=== PATIENT | female | born 1960 | race Caucasian/White ===

== ENCOUNTER 2017-02-18 11:14 | Inpatient (IN) | payer OTHER ==
--- NOTE | ~2017-02-18 | DS ---
Discharge Summary [place] [id number] [facility] [place]. [address] NAME: YONI AL : 62 STATUS : DIS IN PAT#: [id number] AGE: 56 ADM/REG DATE : 02/18/17 MR#: [id number] REPORT SERV DATE: 03/13/17 DICTATED BY: FROLYAN BEDOYA III DATE: 03/12/17 REPORT STATUS : Draft TRANSCRIBED BY: SERGE DATE: 03/12/17 Data Collection from hospitalization DISCHARGE DIAGNOSES: 1. Acute lymphoblastic leukemia. 2. Hypertension. 3. Depression. CONSULTATIONS: None. PROCEDURES PERFORMED: Lumbar puncture and chemotherapy injection, 02/18/2017. PATHOLOGY: Cerebrospinal fluid cytology (ThinPrep and cytospin)-negative for malignancy-see comment. DISCHARGE MEDICATIONS: Zovirax 400 mg daily, Lipitor 80 mg daily, Wellbutrin XL 300 mg daily, Levaquin 750 mg daily, Prilosec 20 mg daily, Zofran 4 mg every four hours as needed, MiraLAX powder one packet daily as needed, Phenergan 25 mg every eight hours as needed, Accupril 10 mg daily. CONDITION AT DISCHARGE: Stable. DISPOSITION: The patient was discharged home on a regular diet with activities as instructed. She would follow up with me, 02/28/2017. HOSPITAL COURSE: This is a 56-year-old female, who has acute lymphoblastic leukemia. This was diagnosed in September 2016. The patient was going to undergo cycle 3A hyper-CVAD. She was admitted to the hospital at this time for further evaluation and treatment. Upon admission, acyclovir was continued. Her pancytopenia had resolved presently. She underwent a lumbar puncture and chemotherapy injection. The following day, she had no new complaints. Her lungs were clear. Her abdomen was soft, nondistended, and nontender. Arixtra was being given for DVT prophylaxis. A PICC line had been inserted. On the , she had no new complaints. No side effects were noted. Acyclovir was continued as well as Arixtra. Over the next couple of days, she had no complaints. Discharge planning was performed. On 02/22/2017, she did have some constipation. She had no other complaints. She was in no acute distress. Her lungs remained clear. Levaquin was started. Discharge instructions were given. Due to her improved and stable condition, she was discharged home with the above-stated instructions. Information collected by: Cindy Gutierrez I submit the above information as my discharge summary. TG/SERGE Froylan Bedoya III, M.D. Discharge Summary [address] [address] NAME: YONI AL : 62 STATUS : DIS IN PAT#: [id number] AGE: 56 ADM/REG DATE : 02/18/17 MR#: [id number] REPORT SERV DATE: 03/13/17 DICTATED BY: FROYLAN BEDOYA III DATE: 03/12/17 REPORT STATUS : Draft TRANSCRIBED BY: SERGE DATE: 03/12/17 / [id number] CC: Maryjane Rosenthal III, M.D.
[~2017-02-18 11:14] MED LIST: ACCU10 PO; ALEVE220 MG PO; ASAB PO; CENTRUM PO; CHEMO IV; CHEMO THERAPY IV; CHEMOTHERAPY IV; FLUCON1 PO; LEVAQUIN750 MG PO; LIPITOR80 MG PO; MAXIMUM D3 PO; MIRALAX POWDER1 PKT PO; MIRALAXPKT PO; PR25 PO; PRILO PO; VALTREX5 PO; WELLXL300 PO; ZOFRAN ODT4 MG PO; ZOFRANODT8; ZOVIRAX400 MG PO
[2017-02-18 12:19] LABS: BASOPHILS 0.3 %; BASOPHILS ABSOLUTE 0.02 10/3/uL (0.0-0.16); EOSINOPHILS 3.6 %; EOSINOPHILS ABSOLUTE 0.28 10/3/uL (0.0-0.53); HEMATOCRIT 32.3 % (36.0-48.0); HEMOGLOBIN 10.8 g/dL (12.0-16.0); IMMATURE GRANULOCYTES 0.4 %; IMMATURE GRANULOCYTES ABSOLUTE 0.03 10/3/uL (0.0-0.11); LYMPHOCYTES 13.4 %; LYMPHOCYTES ABSOLUTE 1.04 10/3/uL (0.67-4.30); MANUAL DIFF NO %; MEAN CORPUS HGB CONC 33.4 g/dL (32.0-36.0); MEAN CORPUSCULAR HEMOGLOB 32.2 pg (26.0-34.0); MEAN CORPUSCULAR VOLUME 96.4 fL (80-100); MONOCYTES 17.2 %; MONOCYTES ABSOLUTE 1.33 10/3/uL (0.21-1.20); NEUTROPHILS 65.1 %; NEUTROPHILS ABSOLUTE 5.05 10/3/uL (2.02-8.40); PLATELET COUNT 213 10/3/uL (150-400); RBC DISTRIBUTION WIDTH 21.4 % (12.0-16.0); RED CELL COUNT 3.35 10/6/uL (4.0-5.6); WHITE BLOOD CELLS 7.8 10/3/uL (4.5-10.5)
[2017-02-18 12:40] LABS: A/G RATIO 0.9 (0.7-1.9); ALBUMIN 3.4 G/DL (3.5-5.0); ALKALINE PHOSPHATASE 143 U/L (45-117); BUN (BLOOD UREA NITROGEN) 5 MG/DL (6-23); CALCIUM, SERUM 9.1 MG/DL (8.5-10.4); CHLORIDE, SERUM 111 MMOL/L (96-112); CO2 (CARBON DIOXIDE) 27 MMOL/L (24-34); CREATININE 0.65 MG/DL (0.55-1.02); GFR AFRICAN AMERICAN 116 ML/MIN (>=60); GFR NON AFRICAN AMERICAN 100 ML/MIN (>=60); GLOBULIN 3.6 G/DL (2.5-4.1); GLUCOSE, SERUM 112 MG/DL (60-99); POTASSIUM, SERUM 3.1 MMOL/L (3.5-5.3); SGOT(AST) 20 U/L (5-40); SGPT(ALT) 30 U/L (5-65); SODIUM, SERUM 148 MMOL/L (135-148); TOTAL BILIRUBIN 0.6 MG/DL (0-1.2)
[2017-02-19 03:54] LABS: BASOPHILS 0 %; EOSINOPHILS 0 %; HEMATOCRIT 33.1 % (36.0-48.0); HEMOGLOBIN 10.9 g/dL (12.0-16.0); IMMATURE GRANULOCYTES 0.3 %; IMMATURE GRANULOCYTES ABSOLUTE 0.02 10/3/uL (0.0-0.11); LYMPHOCYTES 7.8 %; MEAN CORPUS HGB CONC 32.9 g/dL (32.0-36.0); MEAN CORPUSCULAR HEMOGLOB 32.3 pg (26.0-34.0); MEAN CORPUSCULAR VOLUME 98.2 fL (80-100); MEAN PLATELET VOLUME 9.9 fL (9.2-13.0); MONOCYTES 0.8 %; MONOCYTES ABSOLUTE 0.05 10/3/uL (0.21-1.20); NEUTROPHILS 91.1 %; NEUTROPHILS ABSOLUTE 5.82 10/3/uL (2.02-8.40); PLATELET COUNT 209 10/3/uL (150-400); RBC DISTRIBUTION WIDTH 20.6 % (12.0-16.0); RED CELL COUNT 3.37 10/6/uL (4.0-5.6); WHITE BLOOD CELLS 6.4 10/3/uL (4.5-10.5)
[2017-02-19 04:02] LABS: MANUAL DIFF NO %
[2017-02-19 04:06] LABS: BUN (BLOOD UREA NITROGEN) 8 MG/DL (6-23); CALCIUM, SERUM 8.8 MG/DL (8.5-10.4); CHLORIDE, SERUM 108 MMOL/L (96-112); CO2 (CARBON DIOXIDE) 26 MMOL/L (24-34); CREATININE 0.78 MG/DL (0.55-1.02); GFR AFRICAN AMERICAN 99 ML/MIN (>=60); GFR NON AFRICAN AMERICAN 86 ML/MIN (>=60); POTASSIUM, SERUM 3.2 MMOL/L (3.5-5.3); SODIUM, SERUM 147 MMOL/L (135-148)
[2017-02-19 04:07] LABS: GLUCOSE, SERUM 295 MG/DL (60-99)
[2017-02-20 04:02] LABS: BASOPHILS 0.1 %; BASOPHILS ABSOLUTE 0.01 10/3/uL (0.0-0.16); EOSINOPHILS 0 %; HEMATOCRIT 29.9 % (36.0-48.0); HEMOGLOBIN 9.9 g/dL (12.0-16.0); IMMATURE GRANULOCYTES 0.2 %; IMMATURE GRANULOCYTES ABSOLUTE 0.03 10/3/uL (0.0-0.11); LYMPHOCYTES 2.3 %; LYMPHOCYTES ABSOLUTE 0.32 10/3/uL (0.67-4.30); MEAN CORPUS HGB CONC 33.1 g/dL (32.0-36.0); MEAN CORPUSCULAR HEMOGLOB 32.9 pg (26.0-34.0); MEAN CORPUSCULAR VOLUME 99.3 fL (80-100); MEAN PLATELET VOLUME 9.8 fL (9.2-13.0); MONOCYTES ABSOLUTE 0.96 10/3/uL (0.21-1.20); NEUTROPHILS 90.4 %; NEUTROPHILS ABSOLUTE 12.41 10/3/uL (2.02-8.40); PLATELET COUNT 179 10/3/uL (150-400); RBC DISTRIBUTION WIDTH 21.8 % (12.0-16.0); RED CELL COUNT 3.01 10/6/uL (4.0-5.6)
[2017-02-20 04:13] LABS: MANUAL DIFF NO %; WHITE BLOOD CELLS 13.7 10/3/uL (4.5-10.5)
[2017-02-20 04:17] LABS: BUN (BLOOD UREA NITROGEN) 10 MG/DL (6-23); CALCIUM, SERUM 8.7 MG/DL (8.5-10.4); CHLORIDE, SERUM 113 MMOL/L (96-112); CO2 (CARBON DIOXIDE) 24 MMOL/L (24-34); CREATININE 0.78 MG/DL (0.55-1.02); GFR AFRICAN AMERICAN 99 ML/MIN (>=60); GFR NON AFRICAN AMERICAN 86 ML/MIN (>=60); SODIUM, SERUM 146 MMOL/L (135-148)
[2017-02-20 04:22] LABS: GLUCOSE, SERUM 179 MG/DL (60-99)
[2017-02-21 06:32] LABS: BASOPHILS 0 %; EOSINOPHILS 0 %; HEMATOCRIT 28.9 % (36.0-48.0); HEMOGLOBIN 9.5 g/dL (12.0-16.0); IMMATURE GRANULOCYTES 0.3 %; IMMATURE GRANULOCYTES ABSOLUTE 0.03 10/3/uL (0.0-0.11); LYMPHOCYTES 2.6 %; LYMPHOCYTES ABSOLUTE 0.24 10/3/uL (0.67-4.30); MEAN CORPUS HGB CONC 32.9 g/dL (32.0-36.0); MEAN CORPUSCULAR HEMOGLOB 32.6 pg (26.0-34.0); MEAN CORPUSCULAR VOLUME 99.3 fL (80-100); MONOCYTES 6.5 %; MONOCYTES ABSOLUTE 0.61 10/3/uL (0.21-1.20); NEUTROPHILS 90.6 %; NEUTROPHILS ABSOLUTE 8.52 10/3/uL (2.02-8.40); PLATELET COUNT 167 10/3/uL (150-400); RBC DISTRIBUTION WIDTH 21.5 % (12.0-16.0); RED CELL COUNT 2.91 10/6/uL (4.0-5.6); WHITE BLOOD CELLS 9.4 10/3/uL (4.5-10.5)
[2017-02-21 06:41] LABS: BUN (BLOOD UREA NITROGEN) 13 MG/DL (6-23); CHLORIDE, SERUM 111 MMOL/L (96-112); CO2 (CARBON DIOXIDE) 23 MMOL/L (24-34); GFR AFRICAN AMERICAN 119 ML/MIN (>=60); GFR NON AFRICAN AMERICAN 103 ML/MIN (>=60); GLUCOSE, SERUM 150 MG/DL (60-99); POTASSIUM, SERUM 3.4 MMOL/L (3.5-5.3); SODIUM, SERUM 145 MMOL/L (135-148)
[2017-02-21 06:45] LABS: MANUAL DIFF NO %
[2017-02-22 07:23] LABS: BASOPHILS 0 %; EOSINOPHILS 0 %; HEMOGLOBIN 9.5 g/dL (12.0-16.0); IMMATURE GRANULOCYTES 0.2 %; IMMATURE GRANULOCYTES ABSOLUTE 0.01 10/3/uL (0.0-0.11); LYMPHOCYTES 6.8 %; LYMPHOCYTES ABSOLUTE 0.31 10/3/uL (0.67-4.30); MEAN CORPUS HGB CONC 32.8 g/dL (32.0-36.0); MEAN CORPUSCULAR HEMOGLOB 32.5 pg (26.0-34.0); MEAN CORPUSCULAR VOLUME 99.3 fL (80-100); MONOCYTES 4.8 %; MONOCYTES ABSOLUTE 0.22 10/3/uL (0.21-1.20); NEUTROPHILS 88.2 %; NEUTROPHILS ABSOLUTE 4.05 10/3/uL (2.02-8.40); PLATELET COUNT 134 10/3/uL (150-400); RBC DISTRIBUTION WIDTH 19.8 % (12.0-16.0); RED CELL COUNT 2.92 10/6/uL (4.0-5.6)
[2017-02-22 07:24] LABS: MANUAL DIFF NO %; WHITE BLOOD CELLS 4.6 10/3/uL (4.5-10.5)
[2017-02-22 07:35] LABS: BUN (BLOOD UREA NITROGEN) 13 MG/DL (6-23); CALCIUM, SERUM 8.6 MG/DL (8.5-10.4); CHLORIDE, SERUM 110 MMOL/L (96-112); CO2 (CARBON DIOXIDE) 25 MMOL/L (24-34); CREATININE 0.51 MG/DL (0.55-1.02); GFR AFRICAN AMERICAN 125 ML/MIN (>=60); GFR NON AFRICAN AMERICAN 108 ML/MIN (>=60); POTASSIUM, SERUM 3.3 MMOL/L (3.5-5.3); SODIUM, SERUM 146 MMOL/L (135-148)
[2017-02-22 07:36] LABS: GLUCOSE, SERUM 100 MG/DL (60-99)
[2017-02-22] MEDS ORDERED: LEVAQUIN750 MG PO (09:13)
== END 2017-02-22 16:58 | disposition home or self-care (01) | DRG 839 ==
LOC: 4EA 11:14
PROVIDERS: Internal Medicine
PROC: 02HV33Z Insertion of Infusion Device into Superior Vena Cava, Percutaneous Approach (ICD-10-PCS; principal; 2017-02-17)
PROC: 4A02X4A Measurement of Cardiac Electrical Activity, Guidance, External Approach (ICD-10-PCS; 2017-02-17)
PROC: 3E03305 Introduction of Other Antineoplastic into Peripheral Vein, Percutaneous Approach (ICD-10-PCS; 2017-02-18)
DX: Z51.11 Encounter for antineoplastic chemotherapy (principal); C91.00 Acute lymphoblastic leukemia not having achieved remission; I10 Essential (primary) hypertension; F41.9 Anxiety disorder, unspecified
CPT/HCPCS: 36569; 62270; 77003; 80048; 80053; 85025; 88112; A9270-GY; C1751; J1652; J2405; J9000; J9070; J9209; J9260; J9370

== ENCOUNTER 2017-03-05 15:59 | Inpatient (IN) | payer OTHER ==
--- NOTE | ~2017-03-05 | DS ---
Discharge Summary [facility] [address] [place]. [address] NAME: YONI AL : 62 STATUS : DIS IN PAT#: [id number] AGE: 56 ADM/REG DATE : 03/05/17 MR#: [id number] REPORT SERV DATE: 03/08/17 DICTATED BY: MARYSE DARNELL II DATE: 03/07/17 REPORT STATUS : Draft TRANSCRIBED BY: SERGE DATE: 03/07/17 ADMISSION DATE: 03/05/2017 DISCHARGE DATE: 03/07/2017 DISCHARGE DIAGNOSES: 1. Neutropenic fever. 2. ALL, on chemotherapy. 3. Pancytopenia secondary to chemotherapy. 4. Hypertension. CONSULTS: Carlos Marie M.D., [facility]. BRIEF HISTORY OF PRESENT ILLNESS: The patient is a 56-year-old female with the above history, who presented to [facility] due to fever in the setting of neutropenia. For detailed history and physical examination, please see my note from 03/05/2017. HOSPITAL COURSE: The patient was subsequently admitted and started on cefepime after blood cultures were drawn. Workup including UA, chest x-ray, and blood cultures have all been unremarkable, and she has not had any further fever. Currently, her white count is on the rise and ANC today is 1600. At this point, we will discontinue antibiotics and have the patient follow up in the Oncology Office in the next week or two per Dr. Marie. DISCHARGE MEDICATIONS: 1. Acyclovir 400 mg p.o. daily. 2. Atorvastatin 80 mg p.o. daily. 3. Wellbutrin 300 mg p.o. daily. 4. Prilosec 20 mg p.o. daily. 5. Accupril 10 mg p.o. daily. 6. Phenergan 25 mg p.o. q.8 hours p.r.n. 7. Zofran 4 mg p.o. q.4 hours p.r.n. 8. MiraLAX one pack p.o. daily p.r.n. 9. Tylenol 650 mg p.o. p.r.n. DISCHARGE INSTRUCTIONS: The patient will follow up with Dr. Marie next week. HERVE/SERGE Maryse Darnell II, MD / [id number] CC: Maryse Darnell II, MD Discharge Summary [address] [address] NAME: YONI AL : 62 STATUS : DIS IN PAT#: [id number] AGE: 56 ADM/REG DATE : 03/05/17 MR#: [id number] REPORT SERV DATE: 03/08/17 DICTATED BY: MARYSE DARNELL II DATE: 03/07/17 REPORT STATUS : Draft TRANSCRIBED BY: MODL DATE: 03/07/17 Arik Corado M.D.
--- NOTE | ~2017-03-05 | HP ---
History And Physical [place] [address] [facility] [place]. [address] NAME: YONI AL : 62 STATUS : ADM IN [facility]#: [id number] AGE: 56 ADM/REG DATE : 03/05/17 MR#: [id number] REPORT SERV DATE: 03/05/17 DICTATED BY: MARYSE SWANSON II DATE: 03/05/17 REPORT STATUS : Draft TRANSCRIBED BY: SERGE DATE: 03/05/17 DATE OF ADMISSION: 03/05/2017 CHIEF COMPLAINT: Neutropenic fever. HISTORY OF PRESENT ILLNESS: The patient is a 56-year-old female with a history of ALL, who recently received a dose of vincristine this past . She is status post cycle 3 of hyper-CVAD and presented to [facility] today and found to have a fever of 100.8 and neutropenic. The patient denies any specific complaints of shortness of breath, cough, or sputum production. Denies any nausea, vomiting, or diarrhea. Denies any abdominal pain or dysuria. REVIEW OF SYSTEMS: A 10-point review of systems is otherwise negative except for HPI. PAST MEDICAL HISTORY: 1. ALL, status post cycle 3 of hyper-CVAD. 2. Hypertension. 3. Hyperlipidemia. PAST SURGICAL HISTORY: Eye surgery and breast reduction. SOCIAL HISTORY: Denies any alcohol, tobacco, or drug use. She is . FAMILY HISTORY: Father was a smoker, of lung cancer. HOME MEDICATIONS: Zovirax, Lipitor, Wellbutrin, Prilosec, Accupril, Zofran, and Phenergan. PHYSICAL EXAMINATION: VITAL SIGNS: Blood pressure 115/71, temperature 98.9, heart rate 118, respiration rate 18, and O2 saturation 95% on room air. GENERAL: The patient is alert and oriented x3. In no acute distress. NECK: Supple. Nontender. No lymphadenopathy or thyromegaly. HEENT: Moist mucous membranes. Pupils are equal, round, and reactive to light. Conjunctivae clear. RESPIRATORY: Lungs clear to auscultation bilaterally. No wheezes, rhonchi, or rales. Nonlabored breathing. CARDIOVASCULAR: Tachycardic but regular rhythm. No murmurs, rubs, or gallops. ABDOMEN: Soft, nontender, nondistended. Normoactive bowel sounds. EXTREMITIES: No cyanosis, clubbing, or edema. SKIN: No lesions, rashes, or wounds. NEUROLOGIC: No focal deficits. LABORATORY DATA: Pending. ASSESSMENT AND PLAN: The patient is a 56-year-old female with: History And Physical [address] [address] NAME: YONI AL : 62 STATUS : ADM IN [facility]#: [id number] AGE: 56 ADM/REG DATE : 03/05/17 MR#: [id number] REPORT SERV DATE: 03/05/17 DICTATED BY: MARYSE SWANSON II DATE: 03/05/17 REPORT STATUS : Draft TRANSCRIBED BY: SERGE DATE: 03/05/17 1. Neutropenic fever of uncertain etiology. Has no specific complaints, so we will start with blood cultures, chest x-ray, urinalysis, and start cefepime. 2. Acute lymphocytic leukemia, status post vincristine, now neutropenic. We will follow blood counts and transfuse p.r.n. 3. Hypertension. Home medications. 4. Deep venous thrombosis prophylaxis with Lovenox as long as platelets greater than 50,000. 5. The patient is a full code. HERVE/SERGE Maryse Swanson II, MD / [id number] CC: Maryse Swanson II, MD
[2017-03-05] MEDS ORDERED: 8 HOUR650 MG PO (17:38)
[2017-03-05 18:10] LABS: HEMATOCRIT 29.1 % (36.0-48.0); HEMOGLOBIN 10.2 g/dL (12.0-16.0); MEAN CORPUSCULAR HEMOGLOB 32.4 pg (26.0-34.0); MEAN PLATELET VOLUME 11.9 fL (9.2-13.0); RED CELL COUNT 3.15 10/6/uL (4.0-5.6)
[2017-03-05 18:11] LABS: MEAN CORPUS HGB CONC 35.1 g/dL (32.0-36.0); MEAN CORPUSCULAR VOLUME 92.4 fL (80-100); PLATELET COUNT 39 10/3/uL (150-400); WHITE BLOOD CELLS 1.7 10/3/uL (4.5-10.5)
[2017-03-05 18:12] LABS: MANUAL DIFF YES %
[2017-03-05 18:32] LABS: A/G RATIO 0.9 (0.7-1.9); ALKALINE PHOSPHATASE 98 U/L (45-117); BUN (BLOOD UREA NITROGEN) 11 MG/DL (6-23); CALCIUM, SERUM 8.9 MG/DL (8.5-10.4); CHLORIDE, SERUM 103 MMOL/L (96-112); CO2 (CARBON DIOXIDE) 26 MMOL/L (24-34); CREATININE 0.79 MG/DL (0.55-1.02); GFR AFRICAN AMERICAN 98 ML/MIN (>=60); GFR NON AFRICAN AMERICAN 84 ML/MIN (>=60); GLOBULIN 3.2 G/DL (2.5-4.1); GLUCOSE, SERUM 131 MG/DL (60-99); POTASSIUM, SERUM 2.9 MMOL/L (3.5-5.3); SGOT(AST) 5 U/L (5-40); SGPT(ALT) 25 U/L (5-65); SODIUM, SERUM 140 MMOL/L (135-148); TOTAL BILIRUBIN 0.6 MG/DL (0-1.2); TOTAL PROTEIN 6.2 G/DL (6.0-8.5)
[2017-03-05 18:39] LABS: BAND NEUTROPHILS 4 %; EOSINOPHILS 1 %; EOSINOPHILS ABSOLUTE (CALC) 0.02 10/3/uL (0.0-0.53); LYMPHOCYTES 25 %; LYMPHOCYTES ABSOLUTE (CALC) 0.43 10/3/uL (0.67-4.30); MONOCYTES 56 %; MONOCYTES ABSOLUTE (CALC) 0.95 10/3/uL (0.21-1.20); NEUTROPHILS ABSOLUTE (CALC) 0.31 10/3/uL (2.02-8.40); SEGMENTED NEUTROPHIL (0) 14 %; TOTAL NUCLEATED CELLS 100
[2017-03-05 18:40] LABS: ANISOCYTOSIS 1+ (5-10/OIF) (0-5/OIF); TEARDROP SHAPED RBCS OCC (0-2/OIF)
[2017-03-05 19:23] LABS: ASCORBIC ACID (UR NOT ORDER) NEG (NEG); BILIRUBIN, URINE NEGATIVE (NEG); KETONE, URINE NEGATIVE (NEG); LEUKOCYTE ESTERASE(NOT OR NEG (NEG); WBC (NOT ORDERED) (RFLEX) 1 (0-5)
[2017-03-05 19:39] LABS: PROCALCITONIN 0.15 ng/mL (<0.5)
[2017-03-06 04:22] LABS: HEMATOCRIT 27.9 % (36.0-48.0); HEMOGLOBIN 9.5 g/dL (12.0-16.0); MEAN CORPUS HGB CONC 34.1 g/dL (32.0-36.0); MEAN CORPUSCULAR HEMOGLOB 32.1 pg (26.0-34.0); MEAN CORPUSCULAR VOLUME 94.3 fL (80-100); MEAN PLATELET VOLUME 12.1 fL (9.2-13.0); PLATELET COUNT 40 10/3/uL (150-400); RBC DISTRIBUTION WIDTH 17.2 % (12.0-16.0); RED CELL COUNT 2.96 10/6/uL (4.0-5.6); WHITE BLOOD CELLS 1.6 10/3/uL (4.5-10.5)
[2017-03-06 04:23] LABS: MANUAL DIFF YES %
[2017-03-06 04:36] LABS: BUN (BLOOD UREA NITROGEN) 9 MG/DL (6-23); CALCIUM, SERUM 8.9 MG/DL (8.5-10.4); CHLORIDE, SERUM 107 MMOL/L (96-112); CO2 (CARBON DIOXIDE) 28 MMOL/L (24-34); CREATININE 0.74 MG/DL (0.55-1.02); GFR AFRICAN AMERICAN 106 ML/MIN (>=60); GFR NON AFRICAN AMERICAN 91 ML/MIN (>=60); GLUCOSE, SERUM 143 MG/DL (60-99); POTASSIUM, SERUM 3.3 MMOL/L (3.5-5.3); SODIUM, SERUM 144 MMOL/L (135-148)
[2017-03-06 04:46] LABS: BAND NEUTROPHILS 14 %; EOSINOPHILS 2 %; EOSINOPHILS ABSOLUTE (CALC) 0.03 10/3/uL (0.0-0.53); IMMATURE GRANS ABSOLUTE (CALC) 0.03 10/3/uL (0.0-0.11); LYMPHOCYTES 20 %; LYMPHOCYTES ABSOLUTE (CALC) 0.32 10/3/uL (0.67-4.30); METAMYELOCYTES 2 %; MONOCYTES 42 %; MONOCYTES ABSOLUTE (CALC) 0.67 10/3/uL (0.21-1.20); NEUTROPHILS ABSOLUTE (CALC) 0.54 10/3/uL (2.02-8.40); SEGMENTED NEUTROPHIL (0) 20 %; TOTAL NUCLEATED CELLS 100
[2017-03-06 04:47] LABS: ANISOCYTOSIS 1+ (5-10/OIF) (0-5/OIF)
[2017-03-07 05:34] LABS: HEMATOCRIT 29.3 % (36.0-48.0); HEMOGLOBIN 10.1 g/dL (12.0-16.0); MEAN CORPUS HGB CONC 34.5 g/dL (32.0-36.0); MEAN CORPUSCULAR HEMOGLOB 32.3 pg (26.0-34.0); MEAN CORPUSCULAR VOLUME 93.6 fL (80-100); MEAN PLATELET VOLUME 11.1 fL (9.2-13.0); RED CELL COUNT 3.13 10/6/uL (4.0-5.6)
[2017-03-07 05:36] LABS: MANUAL DIFF YES %; PLATELET COUNT 56 10/3/uL (150-400); WHITE BLOOD CELLS 2.6 10/3/uL (4.5-10.5)
[2017-03-07 06:28] LABS: BAND NEUTROPHILS 13 %; IMMATURE GRANS ABSOLUTE (CALC) 0.13 10/3/uL (0.0-0.11); LYMPHOCYTES 10 %; LYMPHOCYTES ABSOLUTE (CALC) 0.26 10/3/uL (0.67-4.30); METAMYELOCYTES 3 %; MONOCYTES 24 %; MONOCYTES ABSOLUTE (CALC) 0.62 10/3/uL (0.21-1.20); MYELOCYTES 2 %; NEUTROPHILS ABSOLUTE (CALC) 1.59 10/3/uL (2.02-8.40); SEGMENTED NEUTROPHIL (0) 48 %; TOTAL NUCLEATED CELLS 100
[2017-03-07 06:29] LABS: PLATELET ESTIMATE DEC (ADEQUATE); TEARDROP SHAPED RBCS OCC (0-2/OIF)
[2017-03-07 06:30] LABS: ANISOCYTOSIS 1+ (5-10/OIF) (0-5/OIF)
== END 2017-03-07 11:52 | disposition home or self-care (01) | DRG 809 ==
LOC: 4EA 15:59
PROVIDERS: Internal Medicine
DX: D70.9 Neutropenia, unspecified (principal); C91.00 Acute lymphoblastic leukemia not having achieved remission; R50.81 Fever presenting with conditions classified elsewhere; I10 Essential (primary) hypertension; D61.810 Antineoplastic chemotherapy induced pancytopenia
CPT/HCPCS: 71010; 80048; 80053; 81001; 84145; 85025; 87040; A9270-GY; J0692

== ENCOUNTER 2017-03-25 11:44 | Inpatient (IN) | payer OTHER ==
--- NOTE | ~2017-03-25 | HP ---
History And Physical [place] [address] [facility] [place]. [address] NAME: YONI AL : 62 STATUS : ADM IN [facility]#: [id number] AGE: 56 ADM/REG DATE : 03/25/17 MR#: [id number] REPORT SERV DATE: 03/25/17 DICTATED BY: MARYSE DARNELL II DATE: 03/25/17 REPORT STATUS : Draft TRANSCRIBED BY: MODLanette DATE: 03/25/17 DATE OF ADMISSION: 03/25/2017 PRIMARY ONCOLOGIST: Dr. Marie. CHIEF COMPLAINT: Neutropenic fever and recent dental work. HISTORY OF PRESENT ILLNESS: The patient is a 56-year-old female with a history of ALL status post hyper-CVAD who presented clinic today after having a fever of a little over 101 at home. She was found to be neutropenic in the clinic and subsequently admitted for neutropenic fever. Currently the patient denies any shortness of breath, chest pain, cough, sore throat, nausea, vomiting, diarrhea, or abdominal pain. Her only real symptom is pain and swelling in her left upper molar after recent tooth extraction. She states her face feels swollen and she can feel a tender lymph node in her left neck. Otherwise no complaints. REVIEW OF SYSTEMS: A 10-point review of systems is otherwise negative except for HPI. PAST MEDICAL HISTORY: 1. ALL, status post hyper-CVAD, being considered for stem cell transplant soon. 2. Hypertension. 3. Hyperlipidemia. PAST SURGICAL HISTORY: Eye surgery and breast reduction. SOCIAL HISTORY: Denies any alcohol, tobacco, or drug use. She is . FAMILY HISTORY: Father was a smoker, of lung cancer. HOME MEDICATIONS: Zovirax, Lipitor, Wellbutrin, Prilosec, Accupril, Zofran, and Phenergan. PHYSICAL EXAMINATION: VITAL SIGNS: Temperature 99.1, pulse 107, respirations 16, and O2 saturation 100% on room air. GENERAL: The patient is alert and oriented x3, in no acute distress. NECK: Supple with mild tenderness of a left anterior cervical chain lymph node as well as pain and swelling of the left maxilla over the molar. There is a visible tooth extraction site molar without any obvious erythema or abscess. HEENT: Moist mucous membranes. Pupils are equal, round, and reactive to light. Conjunctivae clear. RESPIRATORY: Lungs clear to auscultation bilaterally. No wheezes, rhonchi, or rales. CARDIOVASCULAR: Regular rate and rhythm. No murmurs, rubs, or gallops. ABDOMEN: Soft, nontender, nondistended. Normoactive bowel sounds. EXTREMITIES: No cyanosis, clubbing, or edema. History And Physical [address] [address] NAME: YONI AL : 62 STATUS : ADM IN [facility]#: [id number] AGE: 56 ADM/REG DATE : 03/25/17 MR#: [id number] REPORT SERV DATE: 03/25/17 DICTATED BY: MARYSE DARNELL II DATE: 03/25/17 REPORT STATUS : Draft TRANSCRIBED BY: MODLanette DATE: 03/25/17 SKIN: No lesions, rashes, or wounds. NEUROLOGIC: No focal deficits. LABORATORY DATA: Pending. ASSESSMENT AND PLAN: The patient is a 56-year-old female with 1. Neutropenic fever likely secondary to recent dental work with possible tooth infection or abscessed tooth. We will go ahead and start the patient on Zosyn and get a CT of her maxilla to evaluate for possible abscess. Otherwise we will check blood cultures, chest x-ray, and UA as per standard neutropenic fever workup. 2. Acute lymphocytic leukemia, on chemotherapy. We will schedule to receive chemotherapy today; however, holding off due to neutropenic fever. 3. Hypertension. 4. The patient is a full code. HERVE/SERGE Maryse Darnell II, MD / [id number] CC: Maryjane Rosenthal III, M.D.
--- NOTE | ~2017-03-25 | DS ---
Discharge Summary [facility] [address] [place]. [address] NAME: YONI AL : 62 STATUS : DIS IN PAT#: [id number] AGE: 56 ADM/REG DATE : 03/25/17 MR#: [id number] REPORT SERV DATE: 04/09/17 DICTATED BY: FROYLAN BEDOYA III DATE: 04/09/17 REPORT STATUS : Draft TRANSCRIBED BY: SERGE DATE: 04/09/17 Data Collection from hospitalization DISCHARGE DIAGNOSES: 1. Febrile neutropenia. 2. Acute lymphocytic leukemia - remission. 3. Hypertension. 4. Hyperlipidemia. CONSULTATIONS: None. PROCEDURES PERFORMED: 1. CT scan of the face with contrast on 03/25/2017. 2. Bone marrow biopsy on 03/27/2017. PATHOLOGY: Bone marrow, posterior iliac crest aspiration clot and biopsy - variably cellular bone marrow (10%-70%) with marked erythroid hyperplasia and left shifted granulopoiesis. No B lymphoblastic leukemia/lymphoma identified by morphology. See comment. MEDICATIONS: Zovirax 400 mg daily, Lipitor 80 mg daily, Wellbutrin XL 300 mg daily, Levaquin 750 mg daily as instructed, Prilosec 20 mg daily, and Accupril 10 mg daily. CONDITION AT DISCHARGE: Stable. DISPOSITION: The patient was discharged home on a regular diet with activities as instructed. She would follow up with me on 04/02/2017. HOSPITAL COURSE: This is a 56-year-old female who has a history of acute lymphocytic leukemia, status post hyper-CVAD who presented to the clinic on the day of this admission after having a fever of a little over 101 at home. She was found to be neutropenic in the clinic and subsequently it was felt that she would need to be admitted for neutropenic fever. The patient denied shortness of breath, chest pain, cough, sore throat, nausea, vomiting, diarrhea, or abdominal pain. Her only real symptom was pain and swelling in the left upper molar after a recent tooth extraction. She said that her face felt swollen and she could feel a tender lymph node in her left neck. She was admitted to the hospital at this time for further evaluation and treatment. Upon admission, the patient was started on Zosyn. A CT scan of the maxilla was requested to evaluate for possible abscess. Blood cultures, chest x-ray, and urinalysis were obtained. The patient was going to be scheduled to receive chemotherapy; however, we were going to hold off due to the neutropenic fever. A CT scan of the face with contrast was performed. The following day, she had mild fatigue. She had no other problems. She had no shortness of breath or diarrhea. She had no edema. On 03/27/2017, the patient had no complaints. She remained afebrile. She had no edema. Her lungs were clear. A bone marrow biopsy was performed. Zosyn was continued. On 03/28/2017, she had no new complaints. She tolerated the bone marrow biopsy very well. Her lungs were clear. She had a normal respiratory effort. She had no edema. The next Discharge Summary [address] [address] NAME: YONI AL : 62 STATUS : DIS IN PAT#: [id number] AGE: 56 ADM/REG DATE : 03/25/17 MR#: [id number] REPORT SERV DATE: 04/09/17 DICTATED BY: FROYLAN BEDOYA III DATE: 04/09/17 REPORT STATUS : Draft TRANSCRIBED BY: MODL DATE: 04/09/17 day, she had no new complaints. Her abdomen was soft and nontender. Her lungs were clear. Blood pressure was well controlled. Bone marrow biopsy results were reviewed. On 03/30/2017, the patient was feeling better. She had no pain. She had no fever. Her lungs remained clear. Blood pressure was controlled on Accupril. She was going to be discharged on Levaquin. ANC was 700. Discharge instructions were given. Due to her improved and stable condition, she was discharged home with the above-stated instructions. Information collected by: Cindy Gutierrez I submit the above information as my discharge summary. TG/MODL Froylan Bedoya III, M.D. / [id number] CC: Maryjane Rosenthal III, M.D.
[~2017-03-25 11:44] MED LIST changes: +8 HOUR650 MG PO
[2017-03-25] MEDS ORDERED: LEVAQUIN750 MG PO (15:08)
[2017-03-25 16:46] LABS: HEMATOCRIT 25.2 % (36.0-48.0); HEMOGLOBIN 8.5 g/dL (12.0-16.0); MEAN CORPUS HGB CONC 33.7 g/dL (32.0-36.0); MEAN CORPUSCULAR HEMOGLOB 33.2 pg (26.0-34.0); MEAN CORPUSCULAR VOLUME 98.4 fL (80-100); MEAN PLATELET VOLUME 10.1 fL (9.2-13.0); PLATELET COUNT 183 10/3/uL (150-400); RBC DISTRIBUTION WIDTH 18.4 % (12.0-16.0); RED CELL COUNT 2.56 10/6/uL (4.0-5.6); WHITE BLOOD CELLS 1.6 10/3/uL (4.5-10.5)
[2017-03-25 16:48] LABS: MANUAL DIFF YES %
[2017-03-25 17:05] LABS: A/G RATIO 0.9 (0.7-1.9); ALBUMIN 3.3 G/DL (3.5-5.0); ALKALINE PHOSPHATASE 110 U/L (45-117); BUN (BLOOD UREA NITROGEN) 7 MG/DL (6-23); CALCIUM, SERUM 9.7 MG/DL (8.5-10.4); CHLORIDE, SERUM 105 MMOL/L (96-112); CO2 (CARBON DIOXIDE) 30 MMOL/L (24-34); GFR AFRICAN AMERICAN 113 ML/MIN (>=60); GFR NON AFRICAN AMERICAN 98 ML/MIN (>=60); GLOBULIN 3.5 G/DL (2.5-4.1); GLUCOSE, SERUM 118 MG/DL (60-99); POTASSIUM, SERUM 3.4 MMOL/L (3.5-5.3); SGOT(AST) 9 U/L (5-40); SGPT(ALT) 17 U/L (5-65); SODIUM, SERUM 140 MMOL/L (135-148); TOTAL BILIRUBIN 0.9 MG/DL (0-1.2); TOTAL PROTEIN 6.8 G/DL (6.0-8.5)
[2017-03-25 17:09] LABS: BAND NEUTROPHILS 4 %; LYMPHOCYTES 52 %; LYMPHOCYTES ABSOLUTE (CALC) 0.83 10/3/uL (0.67-4.30); MONOCYTES 40 %; MONOCYTES ABSOLUTE (CALC) 0.64 10/3/uL (0.21-1.20); NEUTROPHILS ABSOLUTE (CALC) 0.13 10/3/uL (2.02-8.40); SEGMENTED NEUTROPHIL (0) 4 %; TOTAL NUCLEATED CELLS 100
[2017-03-25 17:10] LABS: ANISOCYTOSIS 1+ (5-10/OIF) (0-5/OIF); MACROCYTES 1+ (5-10/OIF) (0-5/OIF); MICROCYTES 1+ (5-10/OIF) (0-5/OIF); TEARDROP SHAPED RBCS OCC (0-2/OIF)
[2017-03-25 17:11] LABS: OVALOCYTES 1+ (3-10/OIF) (0-2/OIF)
[2017-03-25 18:58] LABS: ASCORBIC ACID (UR NOT ORDER) NEG (NEG); BILIRUBIN, URINE NEGATIVE (NEG); KETONE, URINE NEGATIVE (NEG); LEUKOCYTE ESTERASE(NOT OR NEG (NEG); WBC (NOT ORDERED) (RFLEX) 1 (0-5)
[2017-03-25 21:09] LABS: PROCALCITONIN 0.06 ng/mL (<0.5)
[2017-03-26 04:11] LABS: BUN (BLOOD UREA NITROGEN) 6 MG/DL (6-23); CALCIUM, SERUM 9.3 MG/DL (8.5-10.4); CHLORIDE, SERUM 107 MMOL/L (96-112); CO2 (CARBON DIOXIDE) 29 MMOL/L (24-34); CREATININE 0.78 MG/DL (0.55-1.02); GFR AFRICAN AMERICAN 99 ML/MIN (>=60); GFR NON AFRICAN AMERICAN 86 ML/MIN (>=60); GLUCOSE, SERUM 128 MG/DL (60-99); POTASSIUM, SERUM 3.6 MMOL/L (3.5-5.3); SODIUM, SERUM 143 MMOL/L (135-148)
[2017-03-26 04:15] LABS: HEMATOCRIT 24.5 % (36.0-48.0); HEMOGLOBIN 8.3 g/dL (12.0-16.0); MEAN CORPUS HGB CONC 33.9 g/dL (32.0-36.0); MEAN CORPUSCULAR HEMOGLOB 33.7 pg (26.0-34.0); MEAN CORPUSCULAR VOLUME 99.6 fL (80-100); MEAN PLATELET VOLUME 9.9 fL (9.2-13.0); PLATELET COUNT 182 10/3/uL (150-400); RBC DISTRIBUTION WIDTH 18.4 % (12.0-16.0); RED CELL COUNT 2.46 10/6/uL (4.0-5.6)
[2017-03-26 04:20] LABS: WHITE BLOOD CELLS 1.6 10/3/uL (4.5-10.5)
[2017-03-26 04:21] LABS: MANUAL DIFF YES %
[2017-03-26 07:25] LABS: LYMPHOCYTES 66 %; LYMPHOCYTES ABSOLUTE (CALC) 1.06 10/3/uL (0.67-4.30); MONOCYTES 30 %; MONOCYTES ABSOLUTE (CALC) 0.48 10/3/uL (0.21-1.20); NEUTROPHILS ABSOLUTE (CALC) 0.06 10/3/uL (2.02-8.40); SEGMENTED NEUTROPHIL (0) 4 %; TOTAL NUCLEATED CELLS 100
[2017-03-26 07:26] LABS: ANISOCYTOSIS 1+ (5-10/OIF) (0-5/OIF); MACROCYTES 1+ (5-10/OIF) (0-5/OIF); PLATELET ESTIMATE ADQ (ADEQUATE); POLYCHROMASIA 1+ (2-5/OIF) (0-1/OIF)
[2017-03-27 09:08] LABS: MEAN CORPUS HGB CONC 33.3 g/dL (32.0-36.0); MEAN CORPUSCULAR HEMOGLOB 32.9 pg (26.0-34.0); MEAN CORPUSCULAR VOLUME 98.8 fL (80-100); MEAN PLATELET VOLUME 9.7 fL (9.2-13.0); PLATELET COUNT 209 10/3/uL (150-400); RBC DISTRIBUTION WIDTH 17.9 % (12.0-16.0); RED CELL COUNT 2.43 10/6/uL (4.0-5.6)
[2017-03-27 09:09] LABS: MANUAL DIFF YES %; RETICULOCYTE COUNT 3.7 % (0.5-2.5); RETICULOCYTE COUNT ABSOLUTE 90.2 10/3/uL (20.2-119.8); WHITE BLOOD CELLS 1.7 10/3/uL (4.5-10.5)
[2017-03-27 09:32] LABS: EOSINOPHILS 2 %; EOSINOPHILS ABSOLUTE (CALC) 0.03 10/3/uL (0.0-0.53); LYMPHOCYTES 70 %; LYMPHOCYTES ABSOLUTE (CALC) 1.19 10/3/uL (0.67-4.30); MONOCYTES 28 %; MONOCYTES ABSOLUTE (CALC) 0.48 10/3/uL (0.21-1.20); TOTAL NUCLEATED CELLS 100
[2017-03-27 09:33] LABS: ANISOCYTOSIS 1+ (5-10/OIF) (0-5/OIF); MACROCYTES 1+ (5-10/OIF) (0-5/OIF); PLATELET ESTIMATE ADQ (ADEQUATE); POLYCHROMASIA 1+ (2-5/OIF) (0-1/OIF)
[2017-03-28 04:59] LABS: HEMATOCRIT 24.1 % (36.0-48.0); HEMOGLOBIN 8.1 g/dL (12.0-16.0); MEAN CORPUS HGB CONC 33.6 g/dL (32.0-36.0); MEAN CORPUSCULAR HEMOGLOB 33.6 pg (26.0-34.0); MEAN PLATELET VOLUME 10.3 fL (9.2-13.0); PLATELET COUNT 222 10/3/uL (150-400); RBC DISTRIBUTION WIDTH 17.9 % (12.0-16.0); RED CELL COUNT 2.41 10/6/uL (4.0-5.6)
[2017-03-28 05:00] LABS: WHITE BLOOD CELLS 2.1 10/3/uL (4.5-10.5)
[2017-03-28 05:01] LABS: MANUAL DIFF YES %
[2017-03-28 06:20] LABS: BAND NEUTROPHILS 2 %; LYMPHOCYTES 59 %; LYMPHOCYTES ABSOLUTE (CALC) 1.24 10/3/uL (0.67-4.30); MONOCYTES ABSOLUTE (CALC) 0.67 10/3/uL (0.21-1.20); NEUTROPHILS ABSOLUTE (CALC) 0.19 10/3/uL (2.02-8.40); SEGMENTED NEUTROPHIL (0) 2 %; TOTAL NUCLEATED CELLS 100
[2017-03-28 06:21] LABS: ANISOCYTOSIS 1+ (5-10/OIF) (0-5/OIF); MONOCYTES 37 %; PLATELET ESTIMATE ADQ (ADEQUATE); RBC MORPHOLOGY ABN (NORMAL)
[2017-03-29 05:37] LABS: HEMOGLOBIN 8.2 g/dL (12.0-16.0); MEAN CORPUS HGB CONC 32.8 g/dL (32.0-36.0); MEAN CORPUSCULAR HEMOGLOB 32.7 pg (26.0-34.0); MEAN CORPUSCULAR VOLUME 99.6 fL (80-100); PLATELET COUNT 246 10/3/uL (150-400); RBC DISTRIBUTION WIDTH 17.8 % (12.0-16.0); RED CELL COUNT 2.51 10/6/uL (4.0-5.6)
[2017-03-29 06:00] LABS: MANUAL DIFF YES %; WHITE BLOOD CELLS 2.3 10/3/uL (4.5-10.5)
[2017-03-29 07:18] LABS: ANISOCYTOSIS 1+ (5-10/OIF) (0-5/OIF); EOSINOPHILS 3 %; EOSINOPHILS ABSOLUTE (CALC) 0.07 10/3/uL (0.0-0.53); LYMPHOCYTES 44 %; LYMPHOCYTES ABSOLUTE (CALC) 1.01 10/3/uL (0.67-4.30); MONOCYTES 42 %; MONOCYTES ABSOLUTE (CALC) 0.97 10/3/uL (0.21-1.20); NEUTROPHILS ABSOLUTE (CALC) 0.25 10/3/uL (2.02-8.40); PLATELET ESTIMATE ADQ (ADEQUATE); SEGMENTED NEUTROPHIL (0) 11 %; TOTAL NUCLEATED CELLS 100
[2017-03-30 07:29] LABS: HEMATOCRIT 27.1 % (36.0-48.0); HEMOGLOBIN 8.8 g/dL (12.0-16.0); MEAN CORPUS HGB CONC 32.5 g/dL (32.0-36.0); MEAN CORPUSCULAR HEMOGLOB 32.7 pg (26.0-34.0); MEAN CORPUSCULAR VOLUME 100.7 fL (80-100); MEAN PLATELET VOLUME 10.4 fL (9.2-13.0); PLATELET COUNT 283 10/3/uL (150-400); RBC DISTRIBUTION WIDTH 18.1 % (12.0-16.0); RED CELL COUNT 2.69 10/6/uL (4.0-5.6); WHITE BLOOD CELLS 2.9 10/3/uL (4.5-10.5)
[2017-03-30 07:36] LABS: MANUAL DIFF YES %
[2017-03-30 10:46] LABS: BAND NEUTROPHILS 8 %; IMMATURE GRANS ABSOLUTE (CALC) 0.03 10/3/uL (0.0-0.11); LYMPHOCYTES 48 %; LYMPHOCYTES ABSOLUTE (CALC) 1.39 10/3/uL (0.67-4.30); METAMYELOCYTES 1 %; MONOCYTES 27 %; MONOCYTES ABSOLUTE (CALC) 0.78 10/3/uL (0.21-1.20); SEGMENTED NEUTROPHIL (0) 16 %; TOTAL NUCLEATED CELLS 100
[2017-03-30 10:47] LABS: ANISOCYTOSIS 1+ (5-10/OIF) (0-5/OIF); MACROCYTES 1+ (5-10/OIF) (0-5/OIF); PLATELET ESTIMATE ADQ (ADEQUATE); POLYCHROMASIA 2+ (5-10/OIF) (0-1/OIF)
== END 2017-03-30 13:48 | disposition home or self-care (01) | DRG 809 ==
LOC: 4EA 11:44
PROVIDERS: Internal Medicine; Pathology Cytopathology
PROC: 07DR3ZX Extraction of Iliac Bone Marrow, Percutaneous Approach, Diagnostic (ICD-10-PCS; principal; 2017-03-27 12:00)
DX: D70.3 Neutropenia due to infection (principal); C91.00 Acute lymphoblastic leukemia not having achieved remission; K04.7 Periapical abscess without sinus; I10 Essential (primary) hypertension; R50.81 Fever presenting with conditions classified elsewhere; E78.5 Hyperlipidemia, unspecified; D64.81 Anemia due to antineoplastic chemotherapy; Z98.890 Other specified postprocedural states; Z80.1 Family history of malignant neoplasm of trachea, bronchus and lung
CPT/HCPCS: 70487; 71020; 80048; 80053; 81001; 84145; 85025; 85045; 87040; 88305; 88311; 88313; 88341; 88342; 88360; A9270-GY; J2543; Q9967